=== PATIENT | female | born 1990 | race Caucasian/White ===

== ENCOUNTER 2017-09-17 06:32 | Inpatient (IN) ==
[2017-09-17] MEDS: LACTATED RINGERS 1,000 ML IV SCH ×3 (07:20→20:00)
[2017-09-17] MEDS ORDERED: BUTORPHANOL 2 MG/ML VIAL IV PRN (07:47)
[2017-09-17] MEDS ORDERED: MEPERIDINE 50 MG/1 ML VIAL IV PRN (07:47)
[2017-09-17] MEDS ORDERED: ONDANSETRON 4 MG/2 ML VIAL IV PRN (07:47)
[2017-09-17 07:58] LABS: Basophils % 0.3 % (0.0-0.8); Eosinophils # 0.1 10*3/uL (0.0-0.87); Eosinophils % 1.2 % (0.00-10.9); Hematocrit 35.3 VOL% (35.7-47.0); Immature Granulocytes % 0.7 %; Immature Granulocytes Absolute 0.08 #; Lymphocytes # 1.8 10*3/uL (1.4-4.0); Lymphocytes % 16.1 % (21.3-54.2); Mean Corpuscular Hemoglobin 29 PG (27-34); Mean Corpuscular Volume 86.5 FL (87-102); Mean Platelet Volume 10.2 FL (9.6-12.0); Monocytes # 0.6 10*3/uL (0.11-0.8); Monocytes % 5.6 % (1.7-12.7); Neutrophils # 8.5 10*3/uL (1.4-7.4); Neutrophils % 76.1 % (38.7-73.9); Platelet Count 201 T/CUMM (130-400); Red Blood Count 4.08 MC/CUMM (3.8-5.5); Red Cell Distribution Width 14.3 % (9.3-17.3); White Blood Count 11.2 T/CUMM (4-12)
[2017-09-17] MEDS: OXYTOCIN/LR 20 UNIT/1,000 ML BAG IV SCH ×2 (08:00→14:29)
[2017-09-17 08:17] LABS: Albumin 2.8 G/DL (3.4-5.0); Bilirubin,Total 0.4 MG/DL (0.2-1.0); Calcium 8.7 MG/DL (8.5-10.1); Osmolality,Calculated 270.8 MOS/KG (273-304); Potassium 3.4 MMOL/L (3.5-5.1)
[2017-09-17] MEDS ORDERED: diphenhydrAMINE 50 MG/1 ML VIAL IV PRN ×2 (15:48)
[2017-09-17] MEDS ORDERED: ePHEDrine 50 MG/ML AMP IV PRN (15:48)
[2017-09-17] MEDS ORDERED: PROMETHAZINE 25 MG/1 ML VIAL IM ONE (15:48)
[2017-09-17] MEDS ORDERED: fentaNYL 2 MCG/ROPIV 0.2% EPID 150 ML EPIDURAL SCH (15:48)
[2017-09-17] MEDS ORDERED: ONDANSETRON 4 MG/2 ML VIAL IV ONE (15:48)
[2017-09-17] MEDS ORDERED: hydrOXYzine HCL 25 MG/1 ML VIAL IM PRN (15:48)
[2017-09-17] MEDS ORDERED: FAMOTIDINE 20 MG/2 ML VIAL IV ONE (15:48)
[2017-09-17] MEDS ORDERED: CITRIC ACID/SODIUM CITRATE 30 ML UDCUP PO ONE (15:48)
[2017-09-17 19:00] LABS: Apearance,Urine CLEAR (Clear); Bilirubin,Urine Negative (Negative); Blood, Urine Negative (Negative); Glucose,Urine (UA) Negative (Negative); Ketones,Urine 80 mg/dL (Negative); Nitrite,Urine Negative (Negative); Protein,Urine Negative; RBC,Urine 3 /HPF (0-4); Urine Color Yellow (Yellow); Urine Urobilinogen < 2.0 EU/DL (0.2-1.0); WBC,Urine 5 /HPF (0-6)
[2017-09-17] MEDS ORDERED: miSOPROStol 200 MCG TABLET ONE (19:01)
[2017-09-17] MEDS ORDERED: LIDOCAINE 1% 50 ML VIAL ONE (19:01)
[2017-09-17] MEDS ORDERED: METHYLERGONOVINE 0.2 MG/1 ML AMP ONE (19:02)
[2017-09-17] MEDS ORDERED: CARBOPROST TROMETHAMINE 250 MCG/ML AMP IM ONE (19:02)
[2017-09-18] MEDS ORDERED: ONDANSETRON 4 MG/2 ML VIAL IV PRN (03:25)
[2017-09-18] MEDS ORDERED: ACETAMINOPHEN 325 MG TABLET PO PRN (03:25)
[2017-09-18] MEDS ORDERED: LANOLIN 50% CREAM 0.3 OZ TUBE TOP PRN (03:25)
[2017-09-18] MEDS ORDERED: HYDROCORTISONE 2.5% RECTAL CREAM 30 GM TUBE TOP PRN (03:25)
[2017-09-18] MEDS ORDERED: MEASLES/MUMPS/RUBELLA VACCINE 0.5 ML VIAL SUBCUT ONE (03:25)
[2017-09-18] MEDS ORDERED: oxyCODONE/ACETAMINOPHEN 5-325 MG TABLET PO PRN ×2 (03:25)
[2017-09-18] MEDS ORDERED: WITCH HAZEL PADS 100/JAR TOP PRN (03:25)
[2017-09-18] MEDS ORDERED: RHO(D) IMMUNE GLOBULIN 300 MCG SYRINGE IM ONE (03:25)
[2017-09-18] MEDS ORDERED: BENZOCAINE 20%/MENTHOL 0.5% SPRAY 56 GM CAN TOP PRN (03:25)
[2017-09-18] MEDS ORDERED: DIPH/TET/ACEL PERT BOOSTER VACCINE 0.5 ML VIAL IM ONE (03:25)
[2017-09-18] MEDS ORDERED: OXYTOCIN/LR 20 UNIT/1,000 ML BAG IV ONE (03:25)
[2017-09-18] MEDS ORDERED: BISACODYL 10 MG SUPP RECTAL PRN (03:25)
[2017-09-18] MEDS: IBUPROFEN 800 MG TABLET PO PRN ×2 (03:47→12:20)
[2017-09-18 05:25] LABS: Basophils % 0.2 % (0.0-0.8); Eosinophils # 0.1 10*3/uL (0.0-0.87); Eosinophils % 0.3 % (0.00-10.9); Hematocrit 32.3 VOL% (35.7-47.0); Immature Granulocytes % 0.6 %; Immature Granulocytes Absolute 0.11 #; Lymphocytes # 1.1 10*3/uL (1.4-4.0); Lymphocytes % 6.3 % (21.3-54.2); Mean Corpuscular HGB Conc 34.1 GM/DL (32-36); Mean Corpuscular Hemoglobin 29 PG (27-34); Mean Corpuscular Volume 85.2 FL (87-102); Mean Platelet Volume 10.4 FL (9.6-12.0); Monocytes # 0.8 10*3/uL (0.11-0.8); Monocytes % 4.3 % (1.7-12.7); Neutrophils # 15.7 10*3/uL (1.4-7.4); Neutrophils % 88.3 % (38.7-73.9); Platelet Count 159 T/CUMM (130-400); Red Blood Count 3.79 MC/CUMM (3.8-5.5); Red Cell Distribution Width 14.5 % (9.3-17.3); White Blood Count 17.8 T/CUMM (4-12)
[2017-09-18] MEDS ORDERED: BENZOCAINE/MENTHOL LOZENGE 18/BOX PO PRN (08:13)
[2017-09-18] MEDS: PSEUDOEPHEDRINE 30 MG TABLET PO PRN ×2 (09:02→15:39)
[2017-09-18] MEDS: DOCUSATE SODIUM 100 MG CAPSULE PO SCH ×3 (17:06→20:33)
[2017-09-19] MEDS: IBUPROFEN 800 MG TABLET PO PRN (03:26)
[2017-09-19] MEDS: PSEUDOEPHEDRINE 30 MG TABLET PO PRN (06:12)
[2017-09-19 07:24] VITALS: BP 110/60
[2017-09-19] MEDS: DOCUSATE SODIUM 100 MG CAPSULE PO SCH (08:55)
[2017-09-19] MEDS ORDERED: AZITHROMYCIN 250 MG TABLET PO ONE (09:00)
[2017-09-20] MEDS ORDERED: AZITHROMYCIN 250 MG TABLET PO SCH (09:00)
== END 2017-09-19 15:35 | disposition home or self-care (01) | DRG 775 ==
LOC: N.LDOUT 06:32 → N.LD 06:33 → N.OB 09-18 05:52
PROVIDERS: ADMIT Obstetrics & Gynecology; ATTEND Obstetrics & Gynecology